=== PATIENT | female | born 1985 | race Caucasian/White ===

== ENCOUNTER 2017-02-03 15:53 | Emergency (ER) | payer SELFPAY ==
--- NOTE | 2017-02-03 16:40 | RAD ---
THREE VIEWS LEFT FOOT HISTORY: Trauma and injury to left foot. TECHNIQUE: AP, lateral, and oblique views of the left foot are obtained. FINDINGS: The left foot is unremarkable. No evidence of fractures, subluxations, or bony lesions seen. IMPRESSION: Normal three views, left foot. POS: [facility]
== END 2017-02-03 16:48 | disposition home or self-care (01) ==
LOC: NAV ERS 15:53
DX: S90.122A Contusion of left lesser toe(s) without damage to nail, initial encounter (principal); F32.9 Major depressive disorder, single episode, unspecified; F17.210 Nicotine dependence, cigarettes, uncomplicated; W22.01XA Walked into wall, initial encounter

== ENCOUNTER 2017-03-10 14:17 | Emergency (ER) | payer SELFPAY ==
--- NOTE | 2017-03-10 15:28 | RAD ---
LEFT WRIST 3 VIEWS: Date: 03/10/17 HISTORY: Fall. Left wrist injury. FINDINGS: Scaphoid waist is intact. No acute fracture, dislocation, or aggressive osseous erosions are apparen t. IMPRESSION: No acute osseous abnormalities are demonstrated. POS: [facility]
== END 2017-03-10 15:34 | disposition home or self-care (01) ==
LOC: NAV ERS 14:17
DX: S63.502A Unspecified sprain of left wrist, initial encounter (principal); F32.9 Major depressive disorder, single episode, unspecified; F17.210 Nicotine dependence, cigarettes, uncomplicated; Z79.899 Other long term (current) drug therapy; V00.121A Fall from non-in-line roller-skates, initial encounter; Y93.51 Activity, roller skating (inline) and skateboarding

== ENCOUNTER 2017-07-10 12:24 | Emergency (ER) | payer SELFPAY ==
[2017-07-10 13:16] LABS: #Basophils 0.1 thou/uL (0.0-0.2); #Eosinphils 0.5 thou/uL (0.0-0.7); #Lymphocytes 3.1 thou/uL (1.20-3.40); #Monocytes 0.4 thou/uL (0.11-0.59); #Neutrophils 7.9 thou/uL (1.40-6.50); %Basophils 0.8 % (0.0-1.0); %Eosinophils 4.2 % (0.0-10.0); %Monocytes 3.5 % (0.0-10.0); %Neutrophils 65.6 % (42.0-75.0); Hemoglobin 13.3 g/dL (12.0-16.0); Mean Corpuscular HGB CONC 33.1 g/dL (32.0-36.0); Mean Corpuscular Hemoglobin 30.5 pg (27.0-31.0); Mean Platelet Volume 6.8 fL (7.4-10.4); Platelet Count 237 thou/uL (130-400); RBC Distribution Width 10.8 % (11.5-14.5); Red Blood Cell (RBC) Count 4.37 mill/uL (4.20-5.40); White Blood Cell (WBC) Count 12.1 thou/uL (4.8-10.8)
[2017-07-10 13:29] LABS: ALT (SGPT) 16 U/L (8-55); AST (SGOT) 18 U/L (5-34); Albumin 4.1 g/dL (3.5-5.0); Alkaline Phosphatase 68 U/L (40-150); Anion Gap 13 mmol/L (10-20); BUN (Urea Nitrogen) 9 mg/dL (7.0-18.7); Bilirubin, Total 0.4 mg/dL (0.2-1.2); Calc. Creatinine Clearance 0 mL/min (70-130); Calcium 9.3 mg/dL (7.8-10.44); Carbon Dioxide 22 mmol/L (22-29); Chloride 104 mmol/L (98-107); Estimated GFR-MDRD 81; Globulin 3.3 g/dL (2.4-3.5); Glucose 128 mg/dL (70-105); Potassium 3.4 mmol/L (3.5-5.1); Protein, Total 7.4 g/dL (6.0-8.3); Sodium 136 mmol/L (136-145)
--- NOTE | 2017-07-10 14:39 | ULT ---
RIGHT LOWER EXTREMITY VENOUS DUPLEX EXAM: HISTORY: Edema. Redness to the inner portion of the right thigh. Pain. FINDINGS: Real-time color Doppler evaluation of the right lower extremity was performed from groin to calf. Th is includes evaluation of the common femoral, superficial and profunda femoral, saphenous, popliteal, and trifurcation veins. It shows a patent deep venous system. There is normal compressibility and augmentation. Slightly prominent inguinal nodes maintain normal shape. IMPRESSION: No evidence of DVT of the right lower extremity. POS: [facility]
== END 2017-07-10 14:35 | disposition home or self-care (01) ==
LOC: NAV ERS 12:24
DX: L03.115 Cellulitis of right lower limb (principal); F32.9 Major depressive disorder, single episode, unspecified; F17.210 Nicotine dependence, cigarettes, uncomplicated
CPT/HCPCS: 36415; 80053; 85025; 99406

== ENCOUNTER 2018-05-02 09:50 | Emergency (ER) | payer OTHER, SELFPAY ==
[2018-05-02] MEDS ORDERED: HYDROcodone/Acetaminophen 5/325 mg Tablet ONE (10:14)
--- NOTE | 2018-05-02 11:27 | RAD ---
THREE VIEWS LEFT FOOT: HISTORY: Stepped off a trailer with left foot pain after hearing a pop. COMPARISON: 02/03/17. FINDINGS: Three views left foot show a fracture of the base of the 5th metatarsal. Overlying soft tissue swell ing is seen. No degenerative changes are present. No other fractures or dislocations are seen. IMPRESSION: Fifth metatarsal base fracture. POS: [facility]
--- NOTE | 2018-05-02 11:28 | RAD ---
THREE VIEWS OF THE LEFT ANKLE: COMPARISON: None. HISTORY: Stepped off a trailer with left foot and ankle pain after hearing a pop. FINDINGS: Three views left ankle show a fracture of the base of the 5th metatarsal. No other fractures or disl ocations are seen. Mild soft tissue swelling of the foot is present. IMPRESSION: Fifth metatarsal base fracture. POS: [facility]
--- NOTE | 2018-05-02 11:29 | RAD ---
TWO VIEWS OF THE LEFT TIBIA AND FIBULA: COMPARISON: None. History Stepped out of a trailer and hard a pop with left leg pain. FINDINGS: Two views of the left tibia/fibula show no evidence of acute fracture or dislocation. No degenerativ e changes are seen. IMPRESSION: Unremarkable exam. POS: [facility]
[2018-05-02] MEDS ORDERED: Bacitracin Zinc 1 Packet ONE (12:36)
== END 2018-05-02 11:50 | disposition home or self-care (01) ==
LOC: NAV ERS 09:50
DX: S92.352A Displaced fracture of fifth metatarsal bone, left foot, initial encounter for closed fracture (principal); F17.210 Nicotine dependence, cigarettes, uncomplicated; F32.9 Major depressive disorder, single episode, unspecified; E78.00 Pure hypercholesterolemia, unspecified; E78.5 Hyperlipidemia, unspecified; Z79.899 Other long term (current) drug therapy; X50.1XXA Overexertion from prolonged static or awkward postures, initial encounter
CPT/HCPCS: 29515

== ENCOUNTER 2020-10-30 18:41 | Emergency (ER) | payer OTHER ==
[2020-10-30] MEDS ORDERED: Ketorolac Tromethamine 60 MG/2 ML VIAL ONE (18:54)
== END 2020-10-30 19:30 | disposition home or self-care (01) ==
LOC: NAV ERS 18:41
DX: S93.401A Sprain of unspecified ligament of right ankle, initial encounter (principal); S93.601A Unspecified sprain of right foot, initial encounter; E78.5 Hyperlipidemia, unspecified; E78.00 Pure hypercholesterolemia, unspecified; F17.210 Nicotine dependence, cigarettes, uncomplicated; Z79.899 Other long term (current) drug therapy; W18.30XA Fall on same level, unspecified, initial encounter
CPT/HCPCS: 96372; J1885

== ENCOUNTER 2022-05-25 19:27 | Emergency (ER) | payer BC, OTHER ==
[2022-05-25] MEDS ORDERED: Ibuprofen 200 MG TAB ONE (20:05)
== END 2022-05-25 20:48 | disposition home or self-care (01) ==
LOC: NAV ERS 19:27
DX: S93.492A Sprain of other ligament of left ankle, initial encounter (principal); E78.00 Pure hypercholesterolemia, unspecified; F17.210 Nicotine dependence, cigarettes, uncomplicated; X58.XXXA Exposure to other specified factors, initial encounter